=== PATIENT | female | born 1980 | race Two or more races ===

== ENCOUNTER 2021-08-11 09:20 | Outpatient (AMBR) | payer MEDICAID, SELFPAY ==
--- NOTE | 2021-07-29 10:28 | PTNOTE_ITS ---
PT OP Initial Eval Patient Information Visit Reasons: back pain Medical Diagnosis: M51.26; M54.15 Treatment Dx #1: Back Pain Treatment Dx #2: L/S Mobility Deficits Start of Care: 07/29/21 Initial Assessment Subjective Pt is a 40 y/o female c/o chronic back pain (01/20) with intermittent LE pain started several months ago. Pt's recent MRI showed L5-S1 2 mm central disc bulge. Pt currently has difficulty with sitting, standing, lifting, chores, self care, bed mobility, walking, recreational activities, and sleeping. Objective L/S AROM: all motions are WFL except flexion with pain towards end range Hip PROM: all motions are WFL Hip MMTs Glute Med: 3/5 Glute Max: 3/5 Muscle Length: bilateral Hs tigthness Assessment Pt demonstrate back pain and mobility deficits leading to decline function. Pt will attempt physical therapy to increase ROM, strength, and work on functional tasks. Short Term and [facility] Goals 1) Increase L/S AROM WNL in 6 wks to be able to perform chores 2) Increase core strength WFL in 6 wks to be able to perform lifting activities 3) Decrease back pain to 3/10 in 6 wks to be able to sleep more than 6 hrs 4) Increase hip MMTs grossly to 3+/5 in 6 wks to be able to walk more than 1 hr 5) Indep with HEP Treatment Plan 1) Manual Therapy 2) Therapeutic Activities 3) Therapeutic Exercises 4) Modalities (ice, heat, traction) Frequency and Duration 2 x wk for 6 wks Certification Dates: 07/29/21 to 10/27/21 Office Procedures PT Treatments PT Date of Service: 07/29/21 OP PT Eval Mod Complex 30 minutes: Yes
--- NOTE | 2021-08-08 13:41 | PTNOTE_ITS ---
PT Outpatient Daily Note Date of Service: 08/08/2021 OP Daily Note Visit Reasons: back pain Outpatient Physical Therapy Treatment Date: 08/08/21 Subjective: pt states she is fine laying supine for ther ex. Objective: see flow sheet. Assessment: pt on hot pack for ther ex. she was able to complete all reps without co mplaining of increased pain. assisted her with bed mobility. after ther ex she was placed on traction for a few mins. she had no complaints during traction and after. she no dizziness after traction. Plan: continue POC per PT. Length of Time (minutes) of Treatment: 30 Minutes Office Procedures PT Treatments PT Date of Service: 07/29/21 OP PT Eval Mod Complex 30 minutes: Yes PT Treatments PT Date of Service: 08/08/21 Therapeutic Exercise 30 minutes: Yes
--- NOTE | 2021-08-11 09:51 | PT.ODAYNRPT ---
PT Outpatient Daily Note Date of Service: 08/11/21 OP Daily Note Visit Reasons: back pain Outpatient Physical Therapy Treatment Date: 08/11/21 Subjective: Pt's back is a little better. After last session Pt mention that she was pain free for a day. Objective: Please see flow chart for list of ther ex performed Assessment: tolerate exercises with minimal pain Plan: Continue with PT Length of Time (minutes) of Treatment: 30 Minutes Office Procedures PT Treatments PT Date of Service: 07/29/21 OP PT Eval Mod Complex 30 minutes: Yes PT Treatments PT Date of Service: 08/08/21 Therapeutic Exercise 30 minutes: Yes PT Treatments PT Date of Service: 08/11/21 Traction Mechanical: Yes Therapeutic Exercise 15 minutes: Yes
== END 2021-08-12 23:59 | disposition home or self-care (01) ==
PROVIDERS: PCP Physician Assistant; Referring Provider Physician Assistant; Visit Provider Physician Assistant
DX: M54.50 Low back pain, unspecified (principal); M54.15 Radiculopathy, thoracolumbar region; G89.29 Other chronic pain; R26.2 Difficulty in walking, not elsewhere classified
CPT/HCPCS: 97012; 97110; 97162